=== PATIENT | male | born 1945 | race Caucasian/White ===

== ENCOUNTER 2024-10-26 10:54 | Emergency (ER) | payer MEDICARE, OTHER, SELFPAY ==
--- NOTE | 2024-10-26 11:21 | ED_ITS ---
HPI - General Adult General Chief complaint: Cardiac Arrest/CPR Stated complaint: cardiac arrest History of Present Illness HPI narrative: 79-year-old male present to the emergency department for in full arrest. Patient had called EMS for respiratory distress and when EMS arrived patient was found to be sitting in the chair was unresponsive and was and V-tach. They did shock the patient once on scene and patient remained and PA. Patient was intubated and a left femoral central line was placed. Family arrived and did confirm the patient was DNI DNR. Resuscitative efforts were stopped at approximately 11:20 a.m. Time of was called at 11:30 a.m. Family states the patient has had increased shortness breath over the last 3 weeks, patient does have history of AFib, CHF and prior CVA Related Data Allergies Allergy/AdvReac Type Severity Reaction Status Date / Time cephalexin Allergy Intermediate Confusion Verified 05/23/18 07:37 Review of Systems Review of Systems: ROS unobtainable: Yes unobtainable due to medical condition Exam Narrative: APPEARANCE: Full arrest on arrival HEAD: normocephalic, atraumatic. EYES: Fixed and dilated THROAT: Radhames airway in place, transitioned to ET tube NECK: Supple. No adenopathy, no masses. RESPIRATORY: Agonal breathing CARDIOVASCULAR: PEA ABDOMINAL: Soft, nontender, nondistended, normal bowel sounds MUSCULOSKELETAL: No spontaneous movement NEURO: In response SKIN: Mottled Procedures Central Line Placement Left Femoral: Central Line Time: 11:23 Performed Emergently - Given emergent patient condition, temporal constraints may have precluded informed consent.: Yes Time Out Performed: Yes Patient Placed on Monitor/Pulse Ox: Yes Emergently Placed, Full Sterile: prep not done Ultrasound Used for Placement: Yes Central Line Lumen Inserted: triple Post Procedure: sutured in place, good blood return, all ports aspirated, flushed, capped and sterile dressing applied Patient Tolerated Procedure: well and no complications Complications: none Intubation Intubation #1: Intubation Time: 11:21 Time out performed: Yes sedative: none Tube Size (cm): 7.5 Method of Intubation: orotracheal Number of Attempts: 1 Tube Secured Depth (cm): 23 Tube Secured Location: teeth Tube Placement Confirmation: visualized tube passing through cords, equal breath sounds bilaterally, no breath sounds over epigastrium and confirmation by capnometry Patient Tolerated Procedure: well and no complications Intubation Complications: none Medical Decision Making MDM Narrative Medical decision making narrative: 79-year-old male present to the ED in full arrest. Patient had 5 rounds of epi prior to arriving, patient was intubated had central line placed. During our resuscitation patient did receive 2 shocks for VFib. Prior to starting amiodarone the patient's arrived and stated she wished the patient to be DNI DNR. Critical Care Time Critical Care Time Critical Care Time: Yes Total Critical Care Time: 35 Discharge Plan Discharge Clinical Impression: Cardiac arrest Patient Disposition: Condition: Patient Language: Bulgarian Follow-up/Referrals: UNKNOWN,DOCTOR [Primary Care Provider] -
--- NOTE | 2024-10-26 11:55 | PCCCNOTE ---
Met with the pt's when she arrived at the ED to verify the pt's identity and code status. initially stated the pt was DNR however wanted to continue with chest compressions until her son arrives in 5 minutes. then called the son and found he's 20 minutes away and decided to stop compressions. Notified the treating MD immediately whom requested the to be at bedside if she wanted in which she was agreeable.-divya
--- NOTE | 2024-10-26 11:59 | PC.NURSE ---
see code sheet
--- OUTSIDE RECORDS SUMMARY | 2024-10-26 12:32 | XMS_ITS | Encounter Summary ---
Author Organization [facility] Address [address] [place] [address] Phone Care Team Providers Care Management Instructor Name Role Phone Satish Brothers MD Primary Care Provider [phone] Lindy Carlisle MD Primary Care Provider Ally Starr NP Primary Care Pro vider Encounter Details Date Type Department Care Team (Late st Contact Info) Description 05/17/2021 Treatment [facility] [address] [facility] Medical Office Building [address] [place] [address] Satish Brothers MD [address] [address] Social History Tobacco Use Types Packs/Day Years Used Date Smoking Tobacco: Former Cigarettes Q uit: 1998 Smokeless Tobacco: Never Social Connection and Isolat ion Panel [NHANES] Answer Date Recorded In a typical week, how many times do you talk on the phone with family, friends, or neighbors? More than three times a week 02/05/2021 How often do you get togethe r with friends or relatives? More than three times a week 02/05/2021 How often do you attend chur ch or latter day services? Never 02/05/2021 Do you belong to any clubs o r organizations such as amish groups, unions, fraternal or athletic groups, or school groups? No 02/05/2021 How often do you attend meet ings of the clubs or organizations you belong to? Never 02/05/2021 Are you , , di vorced, , never , or living with a partner? 02/05/2021 Overall Financial Resource Strain (CARDIA) Answe r Date Recorded How hard is it for you to pa y for the very basics like food, housing, medical care, and heating? Not hard at all 02/05/2021 PHQ-2 Answer Date Recorded PHQ-2 Total Score (If total score is 3 or more points, staff should administer the PHQ-9) 0 04/20/2021 Hunger Vital Sign Answer Date Recorded Within the past 12 months, y ou worried that your food would run out before you got the money to buy more. Never true 02/06/20 21 Within the past 12 months, t he food you bought just didn't last and you didn't have money to get more. Never true 02/05/2021 PRAPARE - Transportation Answer Date Re corded In the past 12 months, has l ack of transportation kept you from medical appointments or from getting medications? No 01/25 In the past 12 months, has l ack of transportation kept you from meetings, work, or from getting things needed for daily living? No 02/05/2021 Housing Stability Vital Sign Answer Len e Recorded In the last 12 months, was t here a time when you were not able to pay the mortgage or rent on time? No 02/05/2021 Number of Places Lived in the Last Year Not on f ile 02/05/2021 In the last 12 months, was t here a time when you did not have a steady place to sleep or slept in a alf (including now)? 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
--- OUTSIDE RECORDS SUMMARY | 2024-10-26 12:33 | XMS_ITS | Encounter Summary ---
Author Organization [facility] Address [address] [place] [address] Phone Care Team Providers Care Frit Mixer And Burner Name Role Phone Satish Brothers MD Primary Care Provider [phone] Satish Brothers MD Primary Care Provider [phone] Lindy Carlisle MD Primary Care Provider Ally Starr NP Primary Care Pro vider Encounter Details Date Type Department Care Team (Late st Contact Info) Description 04/25/2015 Orders Only [facility] ProviderIrving MD [address] [place] [id number] Social History Tobacco Use Types Packs/Day Years Used Date Smoking Tobacco: Never Assessed Sex and Gender Information Value Date Recorded Sex Assigned at Not on file 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 Historical Provider CV CARDIAC SERVICES PROCE DURES Final Result * CARDIOLOGY REPORT (04/25/2015) Anatomical Region Laterality Modality Other Narrative 04/25/2015 Ordered by an unspecified provider. Historical Provider CV CARDIAC SERVICES PROCE DURES Final Result documented in this encounter Visit Diagnoses Not on filedocumented in this encounter Care Teams Frit Mixer And Burner Relationship Specialty Start Date End Date Satish Brothers MD PCP - General 11/18/16 01/14/17 Satish Brothers MD PCP - General 01/15/17 10/02/21 Lindy Carlisle MD [address] [place] [address] PCP - General Internal Medicine 10/03/21 02/27/23 Ally Starr NP [address] [place] [address] PCP - General Nurse Practitioner 02/28/23 documented as of this encounter
--- OUTSIDE RECORDS SUMMARY | 2024-10-26 12:33 | XMS_ITS | Encounter Summary ---
Author Organization [facility] Address [address] [place] [address] Phone Care Team Providers Care Rn Digestive Name Role Phone Lindy Carlisle MD Primary Care Provider Ally Starr NP Primary Care Pro vider Encounter Details Date Type Department Care Team (Late st Contact Info) Description 02/03/2023 Treatment [facility] [address] [facility] Medical Office Building [address] [place] [address] Will Walker MD [facility] [address] Social History Tobacco Use Types Packs/Day Years Used Date Smoking Tobacco: Every Day Cigarettes Last attempted to quit: 1998 Cigars Smokeless Tobacco: Never Comments:Occasional cigar Social Connection and Isolat ion Panel [NHANES] Answer Date Recorded In a typical week, how many times do you talk on the phone with family, friends, or neighbors? More than three times a week 02/05/2021 How often do you get togethe r with friends or relatives? More than three times a week 02/05/2021 How often do you attend chur ch or christian services? Never 02/05/2021 Do you belong to any clubs o r organizations such as presybeterian groups, unions, fraternal or athletic groups, or school groups? No 02/05/2021 How often do you attend meet ings of the clubs or organizations you belong to? Never 02/05/2021 Are you , , di vorced, , never , or living with a partner? 02/05/2021 AUDIT-C Answer Date Recorded Q1: How often do you have a drink containing alcohol? 4 or more times a week 12/03/2022 Q2: How many drinks containi ng alcohol do you have on a typical day when you are drinking? 1 or 2 Q3: How often do you have si x or more drinks on one occasion? Less than monthly 12/03/2022 Overall Financial Resource Strain (CARDIA) Answe r Date Recorded How hard is it for you to pa y for the very basics like food, housing, medical care, and heating? Not hard at all 02/05/2021 PHQ-2 Answer Date Recorded PHQ-2 Total Score (If total score is 3 or more points, staff should administer the PHQ-9) 0 06/06/2022 Hunger Vital Sign Answer Date Recorded Within [...] place to sleep or slept in a longterm (including now)? 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
--- OUTSIDE RECORDS SUMMARY | 2024-10-26 12:33 | XMS_ITS | Clinical Summary ---
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 12/02/19 09 Active acetaminophen (TYLENOL) 500 mg tablet Take 1 tablet (500 mg total) by mouth every 6 (six) hours as needed for pain, headaches or fever 03/28/20 17 Active b complex vitamins tabletIndicati ons:Vitamin Deficiency Prevention Take 1 tablet by mouth 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 driver before breakfast 12/02/19 09 Active cholecalcifero l (VITAMIN D-3) 2000 unit capsuleIndicat ions:Vitamin D Deficiency Take 1 capsule (2,000 Units total) by mouth 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 driver before breakfast Active calcium carbonate/lilliam min D3 (CALCIUM 600 + D,3, ORAL) Take 1 tablet by mouth 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 driver before breakfast 600 mg No D in calcium 01/28/20 21 Active psyllium, aspartame, SF (METAMUCIL SF) 3.4 gram packetIndicati ons:constipati on Take 1 packet by mouth 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 driver before breakfast Active finasteride (PROSCAR) 5 mg tablet TAKE 1 TABLET BY MOUTH ONCE DAILY DIRECTED 90 tablet 2 02/16/20 24 Active abaloparatide 80 mcg (3,120 mcg/1.56 mL) pen injector Inject 0.04 mL (80 mcg total) under the skin daily 4.68 mL 3 02/26/20 24 Active pen needle, diabetic (Pen Needle) 32 gauge x 32 needle Use as directed once a day. 100 each 3 02/26/20 24 Active metoprolol XL (TOPROL-XL) 50 mg extended release tablet Take 1 tablet by mouth twice daily 180 tablet 2 06/20/20 24 Active Eliquis 5 mg tablet Take 1 tablet by mouth twice daily 180 tablet 08/09/19 25 Active rosuvastatin (CRESTOR) 40 mg tablet TAKE 1 TABLET BY MOUTH ONCE DAILY AT BEDTIME 90 tablet 09/06/19 25 Active ezetimibe (ZETIA) 10 mg tablet TAKE 1 TABLET BY MOUTH ONCE DAILY AT BEDTIME 90 tablet 09/22/19 25 Active gabapentin (NEURONTIN) 300 mg capsuleIndicat ions:Chronic pain in right foot TAKE 1 CAPSULE BY MOUTH THREE TIMES DAILY 270 capsule 10/15/19 25 Active gabapentin (NEURONTIN) 300 mg capsuleIndicat ions:Chronic pain in right foot Take 1 capsule (300 mg total) by mouth 3 (three) times a day 270 capsule 04/21/20 24 025 Discontinued Active Problems Problem Noted Date Diagnosed Date Nonrheumatic aortic valve stenosis 07/08/2024 Assessment & Plan (07/08/2024 2:06 PM PLASTERING SUPERVISOR): Moderate aortic stenosis appreciated on echocardiogram from 01/15/2024 with low-normal ejection fraction of 51%. Patient is asymptomatic and euvolemic upon examination. Will repeat echocardiogram in 6 months for routine monitoring. His blood pressure is elevated and low normal ejection fraction we discussed adding losartan to his medication regimen. He was a bit hesitant to do so and would like to await echo results in 6 months and monitor blood pressure at home. Thrombocytopenia 12/04/2022 Overview (12/04/2022): Lab Results Component Value Date WBC 6.1 12/03/2022 HGB 15.4 12/03/2022 HCT 45.0 12/03/2022 MCV 103.7 (H) 12/03/2022 LABPLAT 139 (L) 12/03/2022 Most recent plt 139, previously ~300K. Most recent MCV 103.7, has been elevated previous readings as well. B12 and folate wnl. Possible concern for myeloproliferative disorder but will workup further. May need heme f/u pending workup. Assessment & Plan (12/04/2022 1:28 PM CDT): - Repeat CBC in four weeks - HIV - Copper SSS (sick sinus syndrome) 12/03/2022 Assessment & Plan (07/08/2024 2:05 PM PLASTERING SUPERVISOR): Status post PPM. Continue close follow up with EP. Assessment & Plan (01/12/2024 1:26 PM CDT): Status post PPM. Continue close follow up with EP. Medicare annual wellness visit, subsequent 06/06 Assessment & Plan (06/06/2022 2:46 PM PLASTERING SUPERVISOR): - Depression screen: PHQ Screening PHQ-2 Total Score (If total score is 3 or more points, staff should administer the PHQ-9): 0 - A1c: not needed - Lipids: screen today - AAA screening: none on prior US - Colon cancer: due for cscope 2026 - Prostate cancer: Benefits and risks discussed. Pt declines screening - Lung cancer: not needed - HIV: not needed - HCV: screen today - Other STI: not needed - Influenza: utd - Td/Tdap: give today - PPSV23: utd - PCV13: utd - Shingrix: he will consider - COVID: utd bivalent Routine health maintenance objectives discussed including need for healthy diet and physical activity and orders placed for any outstanding screening studies as noted. Physical exam performed as above.Routine annual labs, if needed, have been ordered and will be reviewed with patient when results available. Actinic keratoses 06/06/2022 Overview (12/04/2022): Scalp w/ actinic keratosis and seborrheic keratosis that has been bothersome recently. Plans to see Derm in ~ 2 weeks. Uses OTC cream which helps w/ discomfort. Assessment & Plan (12/04/2022 1:20 PM CDT): - Derm f/u - Discussed protective measures for skin/scalp including wearing hat while outdoors Assessment & Plan (06/06/2022 9:44 PM PLASTERING SUPERVISOR): Urged him to f/u with his windows and doors installer. Discussed photoprotection. Osteoporosis with pathologic al fracture of multiple sites with routine healing 04/20/2021 Overview (04/20/2021): Has 2019 hip fracture from fragility w/ relatively normal BMD, a fall and T12 compression 2020 and a second DXA. Despite the relatively preserved numbers he has osteoporosis in the classic sense Femoral neck T-score= -2.0 03/17 Assessment & Plan (06/06/2022 9:40 PM PLASTERING SUPERVISOR): Hx of hip fracture in 2018 and T12 compression fracture 2020. DEXA 01/2021 with Region BMD T-score Z-score AP Spine (L1-L4) 0.881 -1.9 -0.9 Femoral Neck (Left) 0.653 -2.0 -0.7 Total Hip (Left) 0.981 -0.3 0.4 - S/p REclast 05/2021, will repeat dose this year. - cont calcium, vit D, rec regular exercise. He needs to reduce alcohol intake. Assessment & Plan (04/20/2021 3:33 PM CDT): On Ca and D and remains at high risk for subsequent fracture so we will proceed w/ ZOL Myelopathy of thoracic region 03/13/2021 Impairment of balance 03/13/2021 Compression fracture of T12 vertebra 01/31/2021 Overview (12/04/2022): Previous compression fracture T12 managed non-operatively. Gets PT twice a week. Plans to see bone health clinic December 2022. Last reclast infusion 05/2021, order placed May 2022. Assessment & Plan (12/04/2022 1:24 PM CDT): - Follow up w/ bone health clinic for density screening and reclast infusion administration Assessment & Plan (06/06/2022 9:45 PM PLASTERING SUPERVISOR): Managed nonoperatively. With retropulsion but no myelomalacia. - see tx of osteoporosis Age-related nuclear cataract of both eyes 2017 Presbyopia of both eyes 06/08/2018 Blepharitis of upper eyelids of both eyes 2017 Paroxysmal atrial fibrillation 12/31/2017 Assessment & Plan (07/08/2024 2:05 PM PLASTERING SUPERVISOR): Well controlled and asymptomatic. No bleeding issues with Eliquis. Continue Eliquis and metoprolol XL. Continue close follow up with EP. Repeat CBC. Assessment & Plan (01/12/2024 1:27 PM CDT): Well controlled and asymptomatic. Continue Eliquis and metoprolol XL. Continue close follow up with EP. Assessment & Plan (06/06/2022 9:38 PM PLASTERING SUPERVISOR): Rate controlled. - Cont Eliquis 5mg bid, metoprolol XL 50mg every day - cont f/u with Dr. 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 Cont tx of afib, ASA, rosuvastatin as secondary prevention. Assessment & Plan (03/13/2020 10:43 AM CDT): This and the aftereffects are biggest health trouble Benign prostatic hyperplasia with urinary obstru ction 09/11/2013 Presence of cardiac pacemaker 02/09/2013 Syncope 02/01/2011 Chronic coronary artery disease 12/10/2010 Assessment & Plan (07/08/2024 2:04 PM PLASTERING SUPERVISOR): No chest pain or anginal equivalent. Continue ASA, zetia, Crestor and metoprolol XL. Assessment & Plan (01/12/2024 1:28 PM CDT): No chest pain or anginal equivalent. Continue ASA, zetia and metoprolol XL. Assessment & Plan (06/06/2022 9:43 PM PLASTERING SUPERVISOR): No angina. Moderate coronary disease on angiography approximately 10 years ago. Last ischemic evaluation was about 2 years ago demonstrating no ischemia. F/b Dr. Florez. - Cont ASA 81mg every day, rosuvastatin 40mg every day, metoprolol XL 50mg every day Assessment & Plan (03/13/2020 10:44 AM CDT): He reports no angina Hyperlipidemia 12/10/2010 Assessment & Plan (07/08/2024 2:04 PM PLASTERING SUPERVISOR): Stable on labs in 06/2023. Continue zetia and crestor. Repeat fasting lipid panel. Assessment & Plan (01/12/2024 1:28 PM CDT): Stable on labs in 06/2023. Continue zetia and crestor. Assessment & Plan (06/06/2022 9:40 PM PLASTERING SUPERVISOR): Lab Results Component Value Date CHOL 203 (H) 04/09/2013 Lab Results Component Value Date HDL 47 06/06/2022 HDL 61 03/13/2020 HDL 42 12/03/2018 Lab Results Component Value Date LDLCALC 43 06/06/2022 LDLCALC 28 03/13/2020 LDLCALC 46 12/03/2018 LDL 112 (H) 04/09/2013 Lab Results Component Value Date TRIG 94 06/06/2022 TRIG 155 (H) 03/13/2020 TRIG 87 12/03/2018 - cont Zetia 10mg every day, rosuvastatin 40mg every day Essential hypertension 12/10/2010 Overview (12/04/2022): BP Readings from Last 3 Encounters: 12/04/22 151/73 12/03/22 141/65 08/08/22 149/78 Reports lower home readings. Currently on metop 50 mg but not taking other anti- HTN medications. Assessment & Plan (07/08/2024 2:05 PM PLASTERING SUPERVISOR): Elevated today but well controlled at home per . Admits they have not been checking as of lately. Continue metoprolol XL. Keep blood pressure diary and returned to review 1-2 weeks. Assessment & Plan (01/12/2024 1:28 PM CDT): Elevated today but well controlled at home. Continue metoprolol XL. Assessment & Plan (12/04/2022 1:18 PM CDT): - BP log to bring at next visit - Continue metop 50 Assessment & Plan (06/06/2022 9:42 PM PLASTERING SUPERVISOR): BP above goal <130/80. - Current medication regimen: cont metoprolol XL 50mg every day - rec home BP monitoring - Counseled regarding lifestyle measures to control HTN including low salt diet rich in fruits and vegetables, limiting alcohol use, regular exercise, and weight loss of 5-10% if pt is obese. Sick sinus syndrome (CMS/HCC) 12/10/2010 Overview (12/04/2022): Recently got pacemaker changed. Denies any chest pain, sob, pain at pacemaker site, palpations. Has cardiology f/u 03/2023 Assessment & Plan (12/04/2022 1:21 PM CDT): - Continue outpatient cardiology f/u Assessment & Plan (06/06/2022 9:37 PM PLASTERING SUPERVISOR): S/p PPM, f/b Dr. Anaya. 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 Appears to be a new finding. Stress echo in 2019 with no valvular disease appreciated. Echocardiogram when he can. Abnormal gait 03/13/2021 06/06/2022 Hemiparesis 03/13/2021 06/06/2022 Acute pain due to trauma 02/01/202104/2022 Closed fracture of acetabulum (CMS/HCC) 09/28/2018 06/06/2022 Debility 09/23/2018 06/06/2022 Overview (09/23/2018): From the fall and prior severe stroke He is home bound and wheelchair confined Assessment & Plan (09/23/2018 10:47 AM PLASTERING SUPERVISOR): We need home health and home PT and OT Falling, in, on, steps, sequela 09/23/2018 06/06/2022 Overview (09/23/2018): There is significant potentially unrecognozed injury to the right hip/ pelvis/ sacrum Assessment & Plan (09/23/2018 10:48 AM PLASTERING SUPERVISOR): We will work this up with bone scan and extensive plain films Pain in joint of right hip 09/23/2018 1 08/06/2021 Assessment & Plan (09/23/2018 10:49 AM PLASTERING SUPERVISOR): We will work this up with bone scan and extensive plain films Pain of foot 12/11/2016 06/06/2022 Routine medical exam 12/01/2016 022 Anticoagulated on warfarin 01/06/2014 1 08/06/2021 Arteriosclerotic heart disease (ASHD) 12/10/2010 06/06/2022 Encounters Date Type Department Care Team Description 10/26/2024 Telephone [facility] [address] [address] Ally Starr NP 10/26/2024 Telephone [facility] [address] [place] [address] 8th [place] [address] [place] [phone] Piyush Anaya MD PhD 10/20/2024 Telephone [facility] [address] [facility] [address] [facility] 8th [place] [address] [place] [address] Godwin Florez MD Follow-up 10/19/2024 9:30 AM CDT Office Visit [facility] [address] [place] [address] Ally Starr NP SIERRA (dyspnea on exertion) (Primary Dx); Other fatigue 09/20/2024 Orders Only [facility]iology [address] [facility] [address] [place] [address] Piyush Anaya MD PhD from Last 3 Months Immunizations Immunization Administration Dates Next Due Influenza, Quadrivalent, Hig h Dose, Preservative Free, Intrr 04/05/2020 Influenza, Trivalent, High D ose, Split, Preservative Free, Intramuscular 04/23/2019,04/05/2018,03/28/2017,04/15,04/17/2015,04/26/2014 Moderna SARS-CoV-2 Monovalen t Vaccination (12+ YRS) 01/17/2022,05/19/2021,04/02/2021,10/07 Pneumococcal Conjugate PCV 13 11/21/2014 Pneumococcal Polysaccharide PPV23 09/12/2009 Tdap 06/06/2022 Surgical History Surgery Date Site/Laterality Comments SC TEAEC W/PATCH GRF CAROTID VERTB SUBCLAV NECK INC 07/28/2002 - 07/27/2003 Carotid Thromboendarterectomy - (Added by TW Conv) CORONARY ANGIOPLASTY WITH STENT PLACEMENT 06/27/1999 - 07/27/1999 Cath Stent 2 Type Drug-Eluting - (Added by TW Conv) CAROTID ENARTERECTOMYY 07/28/2002 - 07/27/2003 Endarterectomy Carotid Artery - The RIGHT 2002 (Added by TW Conv) INSERT / REPLACE / REMOVE PACEMAKER 09/25/2008 - 10/25/2008 Dr. Anaya ADENOIDECTOMY as a child COLONOSCOPY DE QUERVAIN'S RELEASE Right repain TIBIA FRACTURE SURGERY in High school SHOULDER SURGERY FRACTURE SURGERY High school leg Medical History Medical History Date Comments Atherosclerotic heart diseas e of [place] coronary artery without angina pectoris ASHD (arterios clerotic heart disease) - (Added by TW Conv) Stroke (HCC) 1999, R sided we akness, aphasia Hypertension Pacemaker Atrial fibrillation (HCC) Dental disease cavities Colon polyp Diverticulosis Chronic diarrhea Cancer (HCC) Skin Benign prostatic hyperplasia Years Osteoporosis 2020 Heart disease Years Family History Medical History Relation Name Comments Coronary artery disease Father Calvin Garza ly history of coronary artery disease - (Added by TW Conv) Heart attack Father Calvin Family history of myocardial infarction - (Added by TW Conv) Heart disease Father Calvin FH: premature coronary heart disease - (Added by TW Conv) Diabetes Mother Saleem Anesthesia problems Neg Hx Broken bones Neg Hx Hip fracture Neg Hx Kyphosis Neg Hx Osteoporosis Neg Hx Scoliosis Neg Hx Relation Name Status Comments Father Calvin Mother Saleem Social History Tobacco Use Types Packs/Day Years Used Date Smoking Tobacco: Former Cigarettes Q uit: 1998 Smokeless Tobacco: Never Comments:Has a cigar per day Passive Exposure Comments:Currently cigars, cigarettes quit in 1998 Social Connection and Isolat ion Panel [NHANES] Answer Date Recorded In a typical week, how many times do you talk on the phone with family, friends, or neighbors? More than three times a week 02/05/2021 How often do you get togethe r with friends or relatives? More than three times a week 02/05/2021 How often do you attend chur or jehovah's witness services? Never 02/05/2021 Do you belong to any clubs o r organizations such as sikh groups, unions, fraternal or athletic groups, or school groups? No 02/05/2021 How often do you attend meet ings of the clubs or organizations you belong to? Never 02/05/2021 Are you , , di vorced, , never , or living with a partner? 02/05/2021 AUDIT-C Answer Date Recorded Q1: How often do you have a drink containing alcohol? 4 or more times a week 11/24/2023 Q2: How many drinks containi ng alcohol do you have on a typical day when you are drinking? 1 or 2 Q3: How often do you have si x or more drinks on one occasion? Never 11/24/2023 Overall Financial Resource Strain (CARDIA) Answe r Date Recorded How hard is it for you to pa y for the very basics like food, housing, medical care, and heating? Not hard at all 02/05/2021 PHQ-2 Answer Date Recorded PHQ-2 Total Score (If total score is 3 or more points, staff should administer the PHQ-9) 0 04/20/2024 Hunger Vital Sign Answer Date Recorded Within the past 12 months, y ou worried that your food would run out before you got the money to buy more. Never true 04/15/20 23 Ran Out of Food in the Last Year Not on file 04/15/2023 PRAPARE - Transportation Answer Date Re corded [...] place to sleep or slept in a retirement (including now)? No 02/05/2021 Personal Safety Answer Date Recorded Have you ever been in or are you currently in a harmful physical or emotional relationship or is someone making you feel afraid or unsafe? Denies 04/15/2023 Sex and Gender Information Value Date Recorded Sex Assigned at Not on file Legal Sex Male 7:47 PM PLASTERING SUPERVISOR Gender Identity Not on file Sexual Orientation Not on file Obstetrics History Last Filed Vital Signs Vital Sign Reading Time Taken Comments Blood Pressure 127/81 10/19/2024 9:30 AM CDT Pulse 79 10/19/2024 9:30 AM CDT Temperature 36.4 C (97.6 F) 04/21/2024 9:34 AM CDT Respiratory Rate 19 04/08/2023 8:17 AM CDT Oxygen Saturation 95% 10/19/2024 9:30 AM CDT Inhaled Oxygen Concentration - - Weight 90.3 kg (199 lb) 10/19/2024 9:30 AM CDT Height 174 cm (5' 8.5 ) 10/19/2024 9:30 AM CDT Body Mass Index 29.82 10/19/2024 9:30 AM CDT Plan of Treatment Health Maintenance Due Date Last Done Comments Albumin Creatinine Ratio, Urine 1945 Hepatitis B Screening 1965 Zoster Vaccine (1 of 2) 1997 Covid-19 Vaccine (5 2023-2 5 season) 2024 01/17/2022, 05/19/2021, 04/02/2021, Additional history exists Hemoglobin A1C 07/17/2024 01/16/2024, 01/01/2023 Influenza Vaccine (Season Ended) 2025 04/05/2020, 04/23/2019, 04/05/2018, Additional history exists Depression Screening 04/21/2025 04/21/2024, 06/06/2022, 04/20/2021, Additional history exists Fall Risk Assessment 04/21/2025 04/21/2024, 04/08/2023, 06/06/2022, Additional history exists Well Visit 65+ 04/21/2025 04/21/2024, 05/28, 04/20/2021, Additional history exists Lipid Panel 07/14/2025 07/14/2024, 06/27, 06/06/2022, Additional history exists eGFR 07/14/2025 07/14/2024, 03/28, 01/24/2023, Additional history exists Dilated Eye Exam 08/28/2025 08/28/2024, , 06/16/2020, Additional history exists Foot Exam 08/31/2025 08/31/2024 DTaP/Tdap/Td Vaccine (2 - Td or Tdap) 06/06/2032 06/06/2022 Pneumococcal vaccine 65+ Discontinued 11/21/2014, 08/28 Hepatitis C Screening Completed 06/06/2022 Colon Cancer Screening-CT Colonography Discontinued 04/08/2023, 01/15/2017 Colon Cancer Screening-Colonoscopy Discontinued 04/08/2023, 01/15/2017 Colon Cancer Screening-DNA Stool Discontinued 04/08/20, 01/15/2017 Colon Cancer Screening-FIT Discontinued 04/08/2023, Colon Cancer Screening-FOBT Discontinued 04/08/2023, 0 01/15/2017 Colon Cancer Screening-Sigmoidoscopy Discontinued 04/08/2023, 01/15/2017 Colorectal Cancer Screening Discontinued Abdominal Aortic Aneurysm (A AA) Screen Completed 12/03/2023, 01/21/2023, 01/09/2015 Medical Devices Implanted Type Area Throat Cutter Device Identifier Shelf Expiration Date Model / Serial / Lot Medtronic Ra Lead (5076-45) Lead Chest Medtronic Cardiac Rhythm Mgmt 5076-45 / / Medtronic Rv Lead (5076-52) Lead Chest Medtronic Cardiac Rhythm Mgmt 5076-52 / / Medtronic Pacemaker (Addrl1) Pacemaker Chest Medtronic Cardiac Rhythm Mgmt [id number] / / Medtronic Inc [place] S Mri Surescan 50.8x46.6mm 2 Chamber 7.4mm Pacemaker 22.5gm [id number] - [id number] - [id number] Implanted:Qty : 1 on 12/03/2022 by Piyush Anaya MD PhD at [facility] Pacemaker Left: Chest Wall Medtronic Inc 02/22/2024 [id number] / [id number] / Procedures Procedure Name Priority Date/Time Associated Diagnosis Comments DEVICE CHECK - REMOTE Routine 09/20/2024 12:58 AM PLASTERING SUPERVISOR BASIC METABOLIC PANEL Routine 07/14/2024 1:07 PM PLASTERING SUPERVISOR Chronic coronary artery disease LIPID PANEL Routine 07/14/2024 1:07 PM PLASTERING SUPERVISOR HEMOGLOBIN A1C Routine 01/16/2024 3:10 PM CDT Age-related osteoporosis without current pathological fracture Other specified diabetes mellitus with other specified complication, unspecified whether long-term insulin use (HCC) COLONOSCOPY 04/08/2023 6:[address] ABDOMEN PELVIS WO CONTRAST Schedule FLAKITA, Read FLAKITA (Appt Today, Awaiting Results) 01/21/2023 2:45 PM CDT Passage of bloody stools Diarrhea, unspecified type HEPATITIS C ANTIBODY Routine 06/06/2022 2:55 PM PLASTERING SUPERVISOR Need for hepatitis C screening test from Last 3 Months or Most Recently Relevant to Health Maintenance Results * DEVICE CHECK - REMOTE (09/20/2024 12:58 AM PLASTERING SUPERVISOR) Anatomical Region Laterality Modality Other 09/20/2024 12:5 8 AM PLASTERING SUPERVISOR Narrative 10/01/2024 8:58 AM PLASTERING SUPERVISOR Interpretation Summary: Battery and Leads (BL) Normal parameters noted on battery and lead(s) --- 12.2 yrs remaining longevity. Sensing, threshold, and RV impedance trends stable and appropriate. No short V-V intervals. Lead impedance out of range --- Atrial bipolar & unipolar impedance 1463 ohms & 1292 ohms. Trends are stable. Presenting Rhythm (SC) Atrial Pacing-Ventricular Sensing (AP-VS) --- AP/VS 60 bpm. Arrhythmic events (AE) Nonsustained VT event(s) identified --- Since 06/28/24: One NSVT episode, 2 sec. Anticoagulation (AC) Patient prescribed Apixaban (Eliquis) Patient on anticoagulant therapy Transmission Information (TI) Device Summary Report Follow Up (FU) Patient's primary treating physician will be apprised of findings Procedure Note Piyush Anaya MD PhD - 10/01/2024 Interpretation Summary: Battery and Leads (BL) Normal parameters noted on battery and lead(s) --- 12.2 yrs remaininglongevity. Sensing, threshold, and RV impedance trends stable andappropriate. No short V-V intervals. Lead impedance out of range --- Atrial bipolar & unipolar impedance 1463ohms & 1292 ohms. Trends are stable. Presenting Rhythm (SC) Atrial Pacing-Ventricular Sensing (AP-VS) --- AP/VS 60 bpm. Arrhythmic events (AE) Nonsustained VT event(s) identified --- Since 06/28/24: One NSVT episode,2 sec. Anticoagulation (AC) Patient prescribed Apixaban (Eliquis) Patient on anticoagulant therapy Transmission Information (TI) Device Summary Report Follow Up (FU) Patient's primary treating physician will be apprised of findings Piyush Anaya MD PhD [facility] PROCEDURES Final Result * (ABNORMAL) Lipid panel (07/14/2024 1:07 PM PLASTERING SUPERVISOR) Cholesterol 92 <200 mg/dL [facility] HDL 31(L) > OR = 40 mg/dL [facility] Triglycerides 93 <150 mg/dL [facility] LDL 43 mg/dL (calc) [facility] Comment: Reference range: <100 Desirable range <100 mg/dL for primary prevention; <70 mg/dL for patients with CHD or diabetic patients with > or = 2 CHD risk factors. LDL-C is now calculated using the Cecily calculation, which is a validated novel method providing better accuracy than the Friedewald equation in the estimation of LDL-C. Shakeel GARLAND et al. LIZ. 2013;310(19): 2489-3825 (http://education.Mutracx/faq/XKK197) Chol/HDL ratio 3.0 <5.0 (calc) [facility] Non-HDL, (LDL+VLDL) 61 <130 mg/dL (calc) [facility] Comment: For patients with diabetes plus 1 major ASCVD risk factor, treating to a non-HDL-C goal of <100 mg/dL (LDL-C of <70 mg/dL) is considered a therapeutic option. 07/14/2024 1:07 PM PLASTERING SUPERVISOR 07/14/2024 1:08 PM PLASTERING SUPERVISOR Narrative [facility] - 07/15/2024 9:58 AM PLASTERING SUPERVISOR FASTING:NO FASTING: NO Jayjay Gardner NP LAB BLOOD ORDERABLES Fin al Result [facility] [address] [address] [place] [address] * Basic metabolic panel (07/14/2024 1:07 PM PLASTERING SUPERVISOR) Pathologist [facility] Glucose 90 65 - 139 mg/dL [facility] Comment: Non-fasting reference interval BUN 16 7 - 25 mg/dL [facility] Creatinine 1.10 0.70 - 1.28 mg/dL [facility] eGFR 69 > OR = 60 mL/min/1.7 3m2 [facility] BUN/creat ratio SEE NOTE: 6 - 22 (calc) [facility] Comment: Not Reported: BUN and Creatinine are within reference range. Sodium 139 135 - 146 mmol/L [facility] Potassium, pl 3.8 3.5 - 5.3 mmol/L [facility] Chloride 102 98 - 110 mmol/L [facility] CO2 27 20 - 32 mmol/L [facility] Calcium 9.5 8.6 - 10.3 mg/dL [facility] Blood 07/14/2024 1:07 PM PLASTERING SUPERVISOR 07/14/2024 1:08 PM PLASTERING SUPERVISOR Narrative [facility] - 07/15/2024 9:58 AM PLASTERING SUPERVISOR FASTING:NO FASTING: NO Jayjay Gardner NP LAB BLOOD ORDERABLES Fin al Result [facility] [address] [place] [address] * Hemoglobin A1c (01/16/2024 3:10 PM CDT) Hgb A1C 5.6 <5.7 % of total Hgb [facility] Comment: For the purpose of screening for the presence of diabetes: <5.7% Consistent with the absence of diabetes 5.7-6.4% Consistent with increased risk for diabetes (prediabetes) > or =6.5% Consistent with diabetes This assay result is consistent with a decreased risk of diabetes. Currently, no consensus exists regarding use of hemoglobin A1c for diagnosis of diabetes in children. According to [place] Diabetes Association (ADA) guidelines, hemoglobin A1c <7.0% represents optimal control in non- diabetic patients. Different metrics may apply to specific patient populations. Standards of Medical Care in Diabetes(ADA). This test was performed on the Flaco chris c503 platform. Effective 10/13/23, a change in test platforms from the Lopez Chha to the Flaco chris c503 may have shifted HbA1c results compared to historical results. Based on laboratory validation testing conducted at [facility], the Flaco platform relative to the Lopez platform had an average increase in HbA1c value of < or = 0.3%. This difference is within accepted variability established by the National Glycohemoglobin Standardization Program. Note that not all individuals will have had a shift in their results and direct comparisons between historical and current results for testing conducted on different platforms is not recommended. Blood 01/16/2024 3:10 PM CDT 01/16/2024 3:11 PM CDT Narrative [facility] - 01/17/2024 7:00 AM CDT FASTING:NO FASTING: NO us Kecia Guzman SUPERVISOR CORE DRILLING LAB BLOOD ORDERABLES Final Re sult SHANNAN [facility] [address] [place] [address] * COLONOSCOPY (04/08/2023 6:59 AM CDT) Anatomical Region Laterality Modality Other Narrative Procedure Note Raul Spear MD - 04/08/2023 6:59 AM CDT ENDOSCOPY LAB Patient Name: Napoleon Woodruff Procedure Date: 04/08/2023 6:59 AM Admit Type: Outpatient Room: [facility] 3 Date of : 1945 Instrument Name: [id number] Gender: Male Note Status: Finalized Procedure: Colonoscopy Indications: Chronic diarrhea, Hematochezia Providers: Raul Spear M.D. Referring MD: Lindy Carlisle M.D. Medicines: Propofol per Anesthesia Complications: No immediate complications. Estimated Blood Loss: Estimated blood loss: none. Procedure: Pre-Anesthesia Assessment: - Prior to the procedure, a History and Physicalwas performed, and patient medications and allergieswere reviewed. The patient is competent. The risks and benefits of the procedure and the sedation optionsand risks were discussed with the patient. Allquestions were answered and informed consent was obtained. Patient identification and proposed procedure were verified by the nurse in the procedure room. Mental Status Examination: alert and oriented. Airway Examination: normal oropharyngeal airway and neck mobility. Respiratory Examination: clear to auscultation. CV Examination: normal. Prophylactic Antibiotics: The patient does not requireprophylactic antibiotics. Prior Anticoagulants: The patient has taken no anticoagulant or antiplatelet agents. ASA Grade Assessment: I - A normal, healthy patient.After reviewing the risks and benefits, the patient was deemed in satisfactory condition to undergo the procedure. The anesthesia plan was to use moderate sedation / analgesia (conscious sedation).Immediately prior to administration of medications, the patient was re-assessed for adequacy to receive sedatives.The heart rate, respiratory rate, oxygen saturations, blood pressure, adequacy of pulmonary ventilation,and response to care were monitored throughout the procedure. The physical status of the patient was re-assessed after the procedure. - The risks and benefits of the procedure and the sedation options and risks were discussed with the patient. All questions were answered and informed consent was obtained. The benefits, risks and alternatives of theprocedure and sedation were discussed and informed consentwas obtained. All questions were answered. Please referto the signed informed consent document in the medical record. The scope was passed under direct vision.The Colonoscope was introduced through the anus and advanced to the the cecum, identified byappendiceal orifice and ileocecal valve. The colonoscopy was performed without difficulty. The patient tolerated the procedure well. The quality of the bowel preparation was good. The ileocecal valve,appendiceal orifice, and rectum were photographed. The bowel preparation used was polyethylene glycol (PEG) via split dose instruction. Findings: The colon (entire examined portion) appeared normal. Biopsies weretaken with a cold forceps for histology. The terminal ileum appeared normal - 1 cm. Internal hemorrhoids were found during retroflexion. The hemorrhoids were mild and Grade I (internal hemorrhoids that do not prolapse). Impression: - The entire examined colon is normal. Biopsied. - The examined portion of the ileum was normal. - Internal hemorrhoids. Recommendation: - Repeat colonoscopy is not recommended forscreening purposes. - Return to my office to see my PA to discusssymptoms and futher work up and treatment. Electronically signed by Raul Spear MD Raul Spear M.D. 04/08/2023 7:50:16 AM Number of Addenda: 0 Note Initiated On: 04/08/2023 6:59 AM Scope Withdrawal Time: 0 hours 6 minutes 44 seconds Scope In: 7:24:19 AM Scope Out: 7:36:00 AM us Raul Spear MD ENDOSCOPY PROCEDURES Fin al Result * CT Abdomen Pelvis WO Contrast (01/21/2023 2:45 PM CDT) Anatomical Region Laterality Modality Body N/A Computed Tomogra phy 01/21/2023 2:55 PM CDT Impressions 01/21/2023 4:26 PM CDT 1. Findings of diverticulosis without evidence of acute diverticulitis with mild thickening of the rectum which may represent proctitis. 2. Age indeterminant T12 compression fracture with associated retropulsion causing severe spinal canal stenosis at this level. Dictated by: Leticia Sarmiento M.D. The radiology attending physician has personally reviewed this study, and had reviewed and/or edited this written report and agrees with it. Electronically signed by: Jordyn Kenyon M.D. Narrative 01/21/2023 4:26 PM CDT EXAMINATION: CT ABDOMEN PELVIS WO CONTRAST HISTORY: Bloody stools diarrhea. TECHNIQUE: Transaxial computed tomographic images of the abdomen and pelvis were obtained without the use of intravenous contrast according to standard protocol. COMPARISON: No relevant comparison available. FINDINGS: Mild bibasilar atelectasis. No pleural effusion or pneumothorax. Partially imaged pacemaker leads within the right atrium and right ventricle. No pericardial effusion. Multivessel coronary artery disease. Hypoattenuating lesion in hepatic segment 4 may represent a cyst. No biliary duct dilation. Cholelithiasis without evidence of acute cholecystitis. The spleen, pancreas, and bilateral adrenal glands are normal. No hydronephrosis or renal calculi. Bowel loops are normal in caliber without evidence of obstruction. There is liquid stool within the rectum which appears mildly thick walled in keeping with diarrhea. Colonic diverticulosis without evidence of acute diverticulitis. The appendix is normal. No free air or free intraperitoneal fluid. No abdominal or pelvic lymphadenopathy. Extensive atherosclerotic calcifications involving the abdominal aorta which remains normal in caliber. The bladder is normal. The prostate gland is present. No suspicious osseous lesions. There is an age indeterminant T12 compression fracture with associated retropulsion causing severe spinal canal stenosis at this level. Procedure Note Jordyn Kenyon MD - 01/21/2023 EXAMINATION: CT ABDOMEN PELVIS WO CONTRAST HISTORY: Bloody stools diarrhea. TECHNIQUE: Transaxial computed tomographic images of the abdomen and pelvis were obtained without the use of intravenous contrast according to standard protocol. COMPARISON: No relevant comparison available. FINDINGS: Mild bibasilar atelectasis. No pleural effusion or pneumothorax. Partially imaged pacemaker leads within the right atrium and right ventricle. No pericardial effusion. Multivessel coronary artery disease. Hypoattenuating lesion in hepatic segment 4 may represent a cyst. No biliary duct dilation. Cholelithiasis without evidence of acute cholecystitis. The spleen, pancreas, and bilateral adrenal glands are normal. No hydronephrosis or renal calculi. Bowel loops are normal in caliber without evidence of obstruction. There is liquid stool within the rectum which appears mildly thick walled in keeping with diarrhea. Colonic diverticulosis without evidence of acute diverticulitis. The appendix is normal. No free air or free intraperitoneal fluid. No abdominal or pelvic lymphadenopathy. Extensive atherosclerotic calcifications involving the abdominal aorta which remains normal in caliber. The bladder is normal. The prostate gland is present. No suspicious osseous lesions. There is an age indeterminant T12 compression fracture with associated retropulsion causing severe spinal canal stenosis at this level. IMPRESSION: 1. Findings of diverticulosis without evidence of acute diverticulitis with mild thickening of the rectum which may represent proctitis. 2. Age indeterminant T12 compression fracture with associated retropulsion causing severe spinal canal stenosis at this level. Dictated by: Leticia Sarmiento M.D. The radiology attending physician has personally reviewed this study, and had reviewed and/or edited this written report and agrees with it. Electronically signed by: Jordyn Kenyon M.D. Ally Starr SUPERVISOR CORE DRILLING IMG CT PROCEDURES Final Result * Hepatitis C antibody (06/06/2022 2:55 PM PLASTERING SUPERVISOR) A-HCV II 0.06 Negative <0.90 [facility] Comment: <=0.9 negative 0.9-<1.0 borderline >= 1 positive Blood 06/06/2022 2:55 PM PLASTERING SUPERVISOR 06/06/2022 3:23 PM PLASTERING SUPERVISOR Lindy Carlisle MD LAB MICROBIOLOGY - GEN ERAL ORDERABLES Final Result Performing Organization Address City/State/[facility] Co de Phone Number [address] [address] from Last 3 Months or Most Recently Relevant to Health Maintenance Insurance AETNA MEDICARE MEDICARE MEDICARE [employer] OPEN ACCESS [facility] MEDICARE [facility] MEDICARE Address: [address] [place] [address] UHC MEDICARE ADVANTAGE [facility] MEDICARE [facility] MEDICARE Advance Directives For more information, please contact: [phone] * Full Code (Latest Code Status on File) Date Activated Date Inactivated Comments 04/08/2023 6:44 AM 04/08/2023 1:20 PM * Full Code Date Activated Date Inactivated Comments 02/01/2021 2:59 AM 02/11/2021 6:18 PM Care Teams Guest Advisor Relationship Specialty Start Date End Date Ally Starr NP PCP - General Nurse Practitioner 02/28/23
--- OUTSIDE RECORDS SUMMARY | 2024-10-26 12:33 | XMS_ITS | Clinical Summary ---
Author Organization [facility] Address [address] [place] [address] Care Team Providers Care Ball Point Splitter Name Role Phone Ally Starr NP Primary Care Provider [phone] Allergies Active Allergy Reactions Criticality Noted Date Comments Cephalexin Other (see comment) 09/05/2018 confusion Medications ELIQUIS 5 MG tabletIndication s:Atrial Fibrillation Take 1 tablet by mouth 2 (two) times daily. Indications: Atrial Fibrillation Active ezetimibe (ZETIA) 10 MG tabletIndication s:elevated cholesterol Take 1 tablet (10 mg total) by mouth nightly at bedtime. Indications: elevated cholesterol 4 Active finasteride (PROSCAR) 5 MG tabletIndication s:bph Take 1 tablet by mouth nightly at bedtime. Indications: bph Active gabapentin (NEURONTIN) 300 MG capsuleIndicatio ns:neuropathy Take 1 capsule (300 mg total) by mouth 3 (three) times daily. Indications: neuropathy 4 Active metoprolol succinate ER (TOPROL-XL) 50 MG 24 hr tabletIndication s:altered blood pressure/a-fib Take 1 tablet by mouth 2 (two) times daily. Indications: altered blood pressure/a-fib 3 Active rosuvastatin (CRESTOR) 40 MG tabletIndication s:elevated cholesterol Take 1 tablet (40 mg total) by mouth nightly at bedtime. Indications: elevated cholesterol 4 Active aspirin EC (ECOTRIN) 81 MG tabletIndication s:heart health Take 1 tablet by mouth daily. Indications: heart health Active Vitamin D3 (CHOLECALCIFEROL ) 50 mcg tabletIndication s:osteoporosis Take 1 tablet by mouth daily. Indications: osteoporosis Active calcium carbonate (OS-ARINA) 1250 (500 Ca) MG tabletIndication s:osteoporosis Take 1 tablet (1,250 mg total) by mouth daily. Indications: osteoporosis Active acetaminophen (TYLENOL) 325 MG tabletIndication s:pain or fever Take 2 tablets by mouth 2 (two) times daily as needed for Pain or Fever. Indications: pain or fever Active lidocaine 4 % patchIndications :right shoulder pain Place 1 patch onto the skin daily. Remove & Discard patch within 12 hours or as directed by MD 30 patch 4 Active B Complex Vitamins (VITAMIN B COMPLEX OR)Indications:v itamin deficiency Take 1 tablet by mouth daily. Indications: vitamin deficiency Active METAMUCIL FIBER ORIndications:gu t health Take 2 Scoops by mouth daily. Indications: gut health Active Resolved Problems Problem Noted Date Diagnosed Date Resolved Date Syncope 12/03/2023 12/07/2023 Social History Tobacco Use Types Packs/Day Years Used Date Smoking Tobacco: Former Smokeless Tobacco: Never Alcohol Use Standard Drinks/Week Comments Yes 0 (1 standard drink = 0.6 oz pur e alcohol) social OASIS D0700: Social Isolation Answer Da te Recorded Frequency of experiencing loneliness or isolatio n Never 12/26/2023 OASIS A1250: Transportation Answer Date Recorded Lack of Transportation (Medical) No 12/26/2023 Lack of Transportation (Non-Medical) No 12/26/2023 Patient Unable or Declines to Respond No 12/26/2023 OASIS B1300: Health Literacy Answer Len e Recorded Frequency of needing help to read materials from doctor or pharmacy Rarely 12/26/2023 [facility] Utilities Answer Date Recorded In the past 12 months has [facility] [employer], [employer], or water [employer] threatened to shut off services in your home? No 12/03/2023 Humiliation, Afraid, Rape, and Kick questionnair e Answer Date Recorded Within the last year, have y ou been afraid of your partner or ex-partner? No 12/03/2023 Within the last year, have y ou been humiliated or emotionally abused in other ways by your partner or ex-partner? No Within the last year, have y ou been kicked, hit, slapped, or otherwise physically hurt by your partner or ex-partner? No 12/03/2023 Within the last year, have y ou been raped or forced to have any kind of sexual activity by your partner or ex-partner? No 12/03/2023 AUDIT-C Answer Date Recorded Q1: How often do you have a drink containing alc ohol? Never 12/03/2023 Average Number of Drinks Not on file 024 Frequency of Binge Drinking Not on file 02/2024 Overall Financial Resource Strain (CARDIA) Answe r Date Recorded How hard is it for you to pa y for the very basics like food, housing, medical care, and heating? Not hard at all 12/03/2023 [facility] Occupat ional Health - Occupational Stress Questionnaire Answer Date Recorded Do you feel stress - tense, restless, nervous, or anxious, or unable to sleep at night because your mind is troubled all the time - these days? Not at all 12/03/2023 Hunger Vital Sign Answer Date Recorded Within the past 12 months, y ou worried that your food would run out before you got the money to buy more. Never true 12/03/19 24 Within the past 12 months, t he food you bought just didn't last and you didn't have money to get more. Never true 12/03/2023 PRAPARE - Transportation Answer Date Re corded In the past 12 months, has l ack of transportation kept you from medical appointments or from getting medications? No 02/2024 In the past 12 months, has l ack of transportation kept you from meetings, work, or from getting things needed for daily living? No 12/03/2023 Housing Stability Vital Sign Answer Len e Recorded In the last 12 months, was t here a time when you were not able to pay the mortgage or rent on time? No 12/03/2023 In the past 12 months, how m any times have you moved where you were living? 1 12/03/2023 At any time in the past 12 m [facility], were you homeless or living in a group home (including now)? 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 Gender Identity Not on file Sexual Orientation Not on file Last Filed Vital Signs Vital Sign Reading Time Taken Comments Blood Pressure 128/64 12/26/2023 1:14 PM CDT Pulse 96 12/26/2023 1:14 PM CDT Temperature 36.6 C (97.9 F) 12/16/2023 11:09 AM CDT Respiratory Rate 18 12/26/2023 1:14 PM CDT Oxygen Saturation 98% 12/26/2023 1:14 PM CDT Inhaled Oxygen Concentration - - Weight 87 kg (191 lb 12.8 oz) 12/07/2023 6:00 AM CDT Height 180.3 cm (5' 11 ) 12/03/2023 3:56 PM CDT Body Mass Index 26.75 12/03/2023 3:56 PM CDT Plan of Treatment Health Maintenance Due Date Last Done Comments Hepatitis C 1963 Zoster Vaccines (1 of 2) 1997 Annual Medicare Wellness Visit 2012 Pneumococcal Vaccine: 65+ Years (3 of 3 - PPSV23 or PCV20) 11/22/2019 11/21/2014, 09/12/2009 RSV Immunization or 60+ Years (1 - 1-dose 75+ series) 2022 COVID-19 Vaccine ( season) 2024 05/09/2022, 01/17/2022, 05/19/2021, Additional history exists DTaP, Tdap and Td Vaccines (2 - Td or Tdap) 06/06/2032 06/06/2022 Meningococcal B Vaccine Aged Out No l onger eligible based on patient's age to complete this topic Meningococcal Vaccine Aged Out No jojo luisa eligible based on patient's age to complete this topic RSV Immunizations Under 20 Months Aged Out No longer eligible based on patient's age to complete this topic Insurance AETNA Advance Directives * Full Code (Latest Code Status on File) Date Activated Date Inactivated Comments 12/09/2023 3:35 PM * Full Code Date Activated Date Inactivated Comments 12/03/2023 9:38 PM 12/07/2023 3:40 PM Care Teams Ball Point Splitter Relationship Specialty Start Date End Date Ally Starr NP [address] [place] [address] PCP - General NURSE PRACTITIONER 12/08/23
--- OUTSIDE RECORDS SUMMARY | 2024-10-26 12:33 | XMS_ITS | Encounter Summary ---
Author Organization [facility] Address [address] [place] [address] Phone Care Team Providers Care C.O.D. 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 Historical Provider [facility] JABIER OTERO Final Result documented in this encounter Visit Diagnoses Not on filedocumented in this encounter Care Teams C.O.D. Biller Relationship Specialty Start Date End Date Satish Brothers MD PCP - General 11/18/16 01/14/17 Satish Brothers MD PCP - General 01/15/17 10/02/21 Lindy Carlisle MD [address] [place], [place] [id number] PCP - General Internal Medicine 10/03/21 02/27/23 Ally Starr NP [address] [place], [place] [id number] PCP - General Nurse Practitioner 02/28/23 documented as of this encounter
--- OUTSIDE RECORDS SUMMARY | 2024-10-26 12:33 | XMS_ITS | Encounter Summary ---
Author Organization [facility] Address [address] [place] [address] Phone Care Team Providers Care Corporate Legal Manager Name Role Phone Lindy Carlisle MD Primary Care Provider Ally Starr NP Primary Care Pro vider Encounter Details Date Type Department Care Team (Late st Contact Info) Description 01/06/2023 Treatment [facility] [address] [facility] Medical Office Building [address] [place] [address] Will Walker MD [facility] [address] Social History Tobacco Use Types [...] often do you attend chur ch or amish services? Never 02/05/2021 Do you belong to any clubs o r organizations such as orthodox groups, unions, fraternal or athletic groups, or [...] place to sleep or slept in a detention (including now)? 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
--- OUTSIDE RECORDS SUMMARY | 2024-10-26 12:33 | XMS_ITS | Encounter Summary ---
Author Organization [facility] Address [address] [place] [address] Phone Care Team Providers Care Computer Systems Consultant Name Role Phone Ally Starr HEAD MILLER Primary Care Pro vider Encounter Details Date Type Department Care Team (Late st Contact Info) Description 10/26/2024 Telephone [facility] Cardiology [address] [facility] Advanced [address] 8th [place] [address] [place] [id number] Piyush Anaya MD PhD [address] [id number] Social History Tobacco Use Types Packs/Day Years [...] often do you attend chur ch or judaism services? Never 02/05/2021 Do you belong to any clubs o r organizations such as mandaeism groups, unions, fraternal or athletic groups, or [...] place to sleep or slept in a [place] care facility (including now)? No 02/05/2021 Personal Safety Answer Date Recorded Have you ever been in or are you currently in a harmful physical or emotional relationship or is someone making you feel afraid or unsafe? 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 did report she called 911 and they took him to [facility] in [place], [place]. They worked on him for 45 min and called it . Pt at 11:30am. states about 10:30am she heard him coughing and went to check on him. States it looked like he was dying . calm on phone until the end and cried. She thanked me for all the great care she has received (DAVID, Dr. Gautam ackerman, Rajni Starr HEAD MILLER. Let her know we will cancel all pending appointments and [employer] will send her a pre-paid pricing analyst to mail back his Carelink transmitter. * Telephone Encounter - Myriam Ballard RN - 10/26/2024 11:22 AM CDT Images from the original note were not included. Received Carelink transmission with alert for monitored VT episodes detected. Beginning at 10:33am pt had VF (14 detections) and at 10:34am a 9 min 23 sec episode - EGM suggests VF, however presenting EGM for transmission shows AP/ONLINE MEDIA BUYER 130 bpm with PVC. I left for to return our call. documented in this encounter Plan of Treatment Not on file documented as of this encounter Visit Diagnoses Not on filedocumented in this encounter Care Teams Computer Systems Consultant Relationship Specialty Start Date End Date Ally Starr NP PCP - General Nurse Practitioner 02/28/23 documented as of this encounter
--- OUTSIDE RECORDS SUMMARY | 2024-10-26 12:33 | XMS_ITS | Referral Summary ---
Author Organization [facility] Address [address] [place] [address] Care Team Providers Care Double Head Machine Operator Name Role Phone Ally Starr NP Primary Care Pro vider Encounters Date Type Department Care Team Description 10/26/[address] [address] Ally Starr NP 10/26/2024 Telephone [facility] Cardiology [facility] Advanced Medicine 8th [place] [address] [place] [address] Piyush Anaya MD PhD 10/20/2024 Telephone [facility] Cardiology [facility] Advanced Medicine 8th [place] [address] [place] [address] Godwin Florez MD Follow-up 10/19/2024 9:30 AM CDT Office Visit [address] [address] Ally Starr NP SIERRA (dyspnea on exertion) (Primary Dx); Other fatigue 09/20/2024 Orders Only [facility] Cardiology [address] [facility] [address] [place] [address] Piyush Anaya MD PhD from Last 3 Months Allergies Active Allergy Reactions Criticality Noted Date Comments Cephalexin Vomiting,Unknown Low 12/01/2008 confusion Medications aspirin 81 mg tabletIndicati ons:prevention of thrombosis Take 1 tablet (81 mg total) by mouth cigarette making machine catcher before breakfast 12/02/19 09 Active acetaminophen (TYLENOL) 500 mg tablet Take 1 tablet (500 mg total) by mouth every 6 (six) hours as needed for pain, headaches or fever 03/28/20 17 Active b complex vitamins tabletIndicati ons:Vitamin Deficiency Prevention Take 1 tablet by mouth cigarette making machine catcher before breakfast 12/02/19 09 Active cholecalcifero l (VITAMIN D-3) 2000 unit capsuleIndicat ions:Vitamin D Deficiency Take 1 capsule (2,000 Units total) by mouth cigarette making machine catcher before breakfast Active calcium carbonate/lilliam min D3 (CALCIUM 600 + D,3, ORAL) Take 1 tablet by mouth cigarette making machine catcher before breakfast 600 mg No D in calcium 01/28/20 21 Active psyllium, aspartame, SF (METAMUCIL SF) 3.4 gram packetIndicati ons:constipati on Take 1 packet by mouth cigarette making machine catcher before breakfast Active finasteride (PROSCAR) 5 mg tablet TAKE 1 TABLET BY MOUTH ONCE DAILY DIRECTED 90 tablet 2 02/16/20 24 Active abaloparatide 80 mcg (3,120 mcg/1.56 mL) pen injector Inject 0.04 mL (80 mcg total) under the skin daily 4.68 mL 3 02/26/20 24 Active pen needle, diabetic (Pen Needle) 32 gauge x 5/32 needle Use as directed once a day. [...] 07/08/2024 Assessment & Plan (07/08/2024 2:06 PM CIRCUIT BREAKER SUPERVISOR): Moderate aortic stenosis appreciated on echocardiogram [...] 12/03/2022 Assessment & Plan (07/08/2024 2:05 PM CIRCUIT BREAKER SUPERVISOR): Status post PPM. Continue close follow up with EP. Assessment & Plan (01/12/2024 1:26 PM CDT): Status post PPM. Continue close follow up with EP. Medicare annual wellness visit, subsequent 06/06 Assessment & Plan (06/06/2022 2:46 PM CIRCUIT BREAKER SUPERVISOR): - Depression screen: PHQ Screening PHQ-2 [...] outdoors Assessment & Plan (06/06/2022 9:44 PM CIRCUIT BREAKER SUPERVISOR): Urged him to f/u with his travel agent. Discussed photoprotection. Osteoporosis with pathologic al fracture of multiple sites with routine healing 04/20/2021 Overview (04/20/2021): Has 2019 hip fracture from fragility w/ relatively normal BMD, a fall and T12 compression 2020 and a second DXA. Despite the relatively preserved numbers he has osteoporosis in the classic sense Femoral neck T-score= -2.0 03/17 Assessment & Plan (06/06/2022 9:40 PM CIRCUIT BREAKER SUPERVISOR): Hx of hip fracture in 2018 [...] administration Assessment & Plan (06/06/2022 9:45 PM CIRCUIT BREAKER SUPERVISOR): Managed nonoperatively. With retropulsion but no myelomalacia. 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 No bleeding issues with Eliquis. Continue Eliquis and metoprolol XL. Continue close follow up with EP. Repeat CBC. Assessment & Plan (01/12/2024 1:27 PM CDT): Well controlled and asymptomatic. Continue Eliquis and metoprolol XL. Continue close follow up with EP. Assessment & Plan (06/06/2022 9:38 PM CIRCUIT BREAKER SUPERVISOR): Rate controlled. - Cont Eliquis 5mg bid, metoprolol XL 50mg every day - cont f/u with Dr. 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 Cont tx of afib, ASA, rosuvastatin as secondary prevention. Assessment & Plan (03/13/2020 10:43 AM CDT): This and the aftereffects are biggest health trouble Benign prostatic hyperplasia with urinary obstru ction 09/11/2013 Presence of cardiac pacemaker 02/09/2013 Syncope 02/01/2011 Chronic coronary artery disease 12/10/2010 Assessment & Plan (07/08/2024 2:04 PM CIRCUIT BREAKER SUPERVISOR): No chest pain or anginal equivalent. Continue ASA, zetia, Crestor and metoprolol XL. Assessment & Plan (01/12/2024 1:28 PM CDT): No chest pain or anginal equivalent. Continue ASA, zetia and metoprolol XL. Assessment & Plan (06/06/2022 9:43 PM CIRCUIT BREAKER SUPERVISOR): No angina. Moderate coronary disease on angiography approximately 10 years ago. Last ischemic evaluation was about 2 years ago demonstrating no ischemia. F/b Dr. Florez. - Cont ASA 81mg every day, rosuvastatin 40mg every day, metoprolol XL 50mg every day Assessment & Plan (03/13/2020 10:44 AM CDT): He reports no angina Hyperlipidemia 12/10/2010 Assessment & Plan (07/08/2024 2:04 PM CIRCUIT BREAKER SUPERVISOR): Stable on labs in 06/2023. Continue zetia and crestor. Repeat fasting lipid panel. Assessment & Plan (01/12/2024 1:28 PM CDT): Stable on labs in 06/2023. Continue zetia and crestor. Assessment & Plan (06/06/2022 9:40 PM CIRCUIT BREAKER SUPERVISOR): Lab Results Component Value Date CHOL [...] medications. Assessment & Plan (07/08/2024 2:05 PM CIRCUIT BREAKER SUPERVISOR): Elevated today but well controlled at [...] 50 Assessment & Plan (06/06/2022 9:42 PM CIRCUIT BREAKER SUPERVISOR): BP above goal <130/80. - Current medication regimen: cont metoprolol XL 50mg every day - rec home BP monitoring - Counseled regarding lifestyle measures to control HTN including low salt diet rich in fruits and vegetables, limiting alcohol use, regular exercise, and weight loss of 5-10% if pt is obese. Sick sinus syndrome ([facility]) 12/10/2010 Overview (12/04/2022): Recently got pacemaker changed. Denies any chest pain, sob, pain at pacemaker site, palpations. Has cardiology f/u 03/2023 Assessment & Plan (12/04/2022 1:21 PM CDT): - Continue outpatient cardiology f/u Assessment & Plan (06/06/2022 9:37 PM CIRCUIT BREAKER SUPERVISOR): S/p PPM, f/b Dr. Anaya. Obstruction [...] to trauma 02/01/202104/2022 Closed fracture of acetabulum ([facility]) 09/28/2018 06/06/2022 Debility 09/23/2018 06/06/2022 Overview (09/23/2018): From the fall and prior severe stroke He is home bound and wheelchair confined Assessment & Plan (09/23/2018 10:47 AM CIRCUIT BREAKER SUPERVISOR): We need home health and home PT and OT Falling, in, on, steps, sequela 09/23/2018 06/06/2022 Overview (09/23/2018): There is significant potentially unrecognozed injury to the right hip/ pelvis/ sacrum Assessment & Plan (09/23/2018 10:48 AM CIRCUIT BREAKER SUPERVISOR): We will work this up with bone scan and extensive plain films Pain in joint of right hip 09/23/2018 1 08/06/2021 Assessment & Plan (09/23/2018 10:49 AM CIRCUIT BREAKER SUPERVISOR): We will work this up with bone scan and extensive plain films Pain of foot 12/11/2016 06/06/2022 Routine medical exam 12/01/2016 022 Anticoagulated on warfarin 01/06/2014 1 08/06/2021 Arteriosclerotic heart disease (ASHD) 12/10/2010 06/06/2022 Immunizations Immunization Administration Dates Next Due Influenza, Quadrivalent, Hig h Dose, Preservative Free, Intrr 04/05/2020 Influenza, Trivalent, High D ose, Split, Preservative Free, Intramuscular 04/23/2019,04/05/2018,03/28/2017,04/15,04/17/2015,04/26/2014 Moderna SARS-CoV-2 Monovalen t Vaccination (12+ YRS) 01/17/2022,05/19/2021,04/02/2021,10/07 Pneumococcal Conjugate PCV 13 11/21/2014 Pneumococcal Polysaccharide PPV23 09/12/2009 Tdap 06/06/2022 Social History Tobacco Use Types Packs/Day Years [...] How often do you attend chur or restoration services? Never 02/05/2021 Do you belong to [...] place to sleep or slept in a senior care (including now)? No 02/05/2021 Personal Safety Answer Date Recorded Have you ever been in or are you currently in a harmful physical or emotional relationship or is someone making you feel afraid or unsafe? Denies 04/15/2023 Sex and Gender Information Value Date Recorded Sex Assigned at Not on file Legal Sex Male 7:47 PM CIRCUIT BREAKER SUPERVISOR Gender Identity Not on file Sexual [...] 10/19/2024 9:30 AM CDT Plan of Treatment Not on file Medical Devices Implanted Type Area Animal Care Provider Device Identifier Shelf Expiration Date Model / Serial / Lot Medtronic Ra Lead (5076-45) Lead Chest Medtronic Cardiac Rhythm Mgmt 5076-45 / / Medtronic Rv Lead (5076-52) Lead Chest Medtronic Cardiac Rhythm Mgmt 5076-52 / / Medtronic Pacemaker (Addrl1) Pacemaker Chest Medtronic Cardiac Rhythm Mgmt [id number] / / Medtronic Inc Diane S Mri Surescan 50.8x46.6mm 2 Chamber 7.4mm Pacemaker 22.5gm [id number] - [id number] - [id number] Implanted:Qty : 1 on 12/03/2022 by Piyush Anaya MD PhD at [facility] Pacemaker Left: Chest Wall Med[employer]onic Inc 02/22/2024 [id number] / [id number] / Procedures Procedure Name Priority Date/Time Associated Diagnosis Comments DEVICE CHECK - REMOTE Routine 09/20/2024 12:58 AM CIRCUIT BREAKER SUPERVISOR BASIC METABOLIC PANEL Routine 07/14/2024 1:07 PM CIRCUIT BREAKER SUPERVISOR Chronic coronary artery disease LIPID PANEL Routine 07/14/2024 1:07 PM CIRCUIT BREAKER SUPERVISOR HEMOGLOBIN A1C Routine 01/16/2024 3:10 PM CDT Age-related osteoporosis without current pathological fracture Other specified diabetes mellitus with other specified complication, unspecified whether chcf insulin use (HCC) COLONOSCOPY 04/08/2023 6:[address] ABDOMEN PELVIS WO CONTRAST Schedule FLAKITA, Read FLAKITA (Appt Today, Awaiting Results) 01/21/2023 2:45 PM CDT Passage of bloody stools Diarrhea, unspecified type HEPATITIS C ANTIBODY Routine 06/06/2022 2:55 PM CIRCUIT BREAKER SUPERVISOR Need for hepatitis C screening test from Last 3 Months or Most Recently Relevant to Health Maintenance Results * DEVICE CHECK - REMOTE (09/20/2024 12:58 AM CIRCUIT BREAKER SUPERVISOR) Anatomical Region Laterality Modality Other 09/20/2024 12:5 8 AM CIRCUIT BREAKER SUPERVISOR Narrative 10/01/2024 8:58 AM CIRCUIT BREAKER SUPERVISOR Interpretation Summary: Battery and Leads (BL) Normal parameters noted on battery and lead(s) --- 12.2 yrs remaining longevity. Sensing, threshold, and RV impedance trends stable and appropriate. No short V-V intervals. Lead impedance out of range --- Atrial bipolar & unipolar impedance 1463 ohms & 1292 ohms. Trends are stable. Presenting Rhythm (RI) Atrial Pacing-Ventricular Sensing (AP-VS) --- AP/VS 60 [...] 1292 ohms. Trends are stable. Presenting Rhythm (RI) Atrial Pacing-Ventricular Sensing (AP-VS) --- AP/VS 60 [...] * (ABNORMAL) Lipid panel (07/14/2024 1:07 PM CIRCUIT BREAKER SUPERVISOR) Pathologist [facility] Cholesterol 92 <200 mg/dL [facility] [...] factors. LDL-C is now calculated using the Shakeel-Whittaker calculation, which is a validated novel method providing better accuracy than the Friedewald equation in the estimation of LDL-C. Shakeel GARLAND et al. LIZ. 2013;310(19): 7582-0143 (http://education.[employer] [place] [employer].SeedInvest/faq/FLW232) Chol/HDL ratio 3.0 <5.0 (calc) [facility] Non-HDL, (LDL+VLDL) 61 <130 mg/dL (calc) [facility] Comment: For patients with diabetes plus 1 major ASCVD risk factor, treating to a non-HDL-C goal of <100 mg/dL (LDL-C of <70 mg/dL) is considered a therapeutic option. 07/14/2024 1:07 PM CIRCUIT BREAKER SUPERVISOR 07/14/2024 1:08 PM CIRCUIT BREAKER SUPERVISOR Narrative [facility] - 07/15/2024 9:58 AM CIRCUIT BREAKER SUPERVISOR FASTING:NO FASTING: NO Jayjay Gardner ORE PUNCHER LAB BLOOD ORDERABLES Fin al Result Performing Organization Address [facility] Co de Phone Number [facility] [address] [place] [address] * Basic metabolic panel (07/14/2024 1:07 PM CIRCUIT BREAKER SUPERVISOR) Pathologist [facility] Glucose 90 65 - 139 mg/dL [facility] Comment: Non-fasting reference interval BUN 16 7 - 25 mg/dL [facility] Creatinine 1.10 0.70 - 1.28 mg/dL [facility] eGFR 69 > OR = 60 mL/min/1.7 3m2 [facility] BUN/creat ratio SEE NOTE: (calc) [facility] Comment: Not Reported: [...] [facility] Blood 07/14/2024 1:07 PM CIRCUIT BREAKER SUPERVISOR 07/14/2024 1:08 PM CIRCUIT BREAKER SUPERVISOR Narrative [facility] - 07/15/2024 9:58 AM CIRCUIT BREAKER SUPERVISOR FASTING:NO FASTING: NO Jayjay Gardner ORE PUNCHER LAB BLOOD ORDERABLES Fin al Result Performing Organization Address [facility] Co de Phone Number [facility] [address] [place] [address] * Hemoglobin A1c (01/16/2024 3:10 PM CDT) Hgb A1C 5.6 <5.7 % of total Hgb [facility] Comment: For the purpose of screening for the presence of diabetes: <5.7% Consistent with the absence of diabetes 5.7-6.4% Consistent with increased risk for diabetes (prediabetes) > or =6.5% Consistent with diabetes This assay result is consistent with a decreased risk of diabetes. Currently, no consensus exists regarding use of hemoglobin A1c for diagnosis of diabetes in children. According to [place] Diabetes Association (ADA) guidelines, hemoglobin A1c <7.0% represents optimal control in non- diabetic patients. Different metrics may apply to specific patient populations. Standards of Medical Care in Diabetes(ADA). This test was performed on the Flaco chris c503 platform. Effective 10/13/23, a change in test platforms from the Lopez Assistant Librarian to the Flaco chris c503 may have shifted HbA1c results compared to historical results. Based on laboratory validation testing conducted at [facility], the Flaco platform relative to the Lopez [...] CDT FASTING:NO FASTING: NO us Kecia Guzman NP LAB BLOOD ORDERABLES Final Re sult [facility] [address] [place] [address] * COLONOSCOPY (04/08/2023 6:59 AM CDT) Anatomical Region Laterality Modality Other Narrative Procedure Note Raul Spear MD - 04/08/2023 6:59 AM CDT ENDOSCOPY LAB Patient Name: Napoleon Woodruff Procedure Date: 04/08/2023 6:59 AM Admit Type: Outpatient Room: [facility] 3 Date of : 1945 Instrument Name: [id number] Gender: Male Note Status: Finalized Procedure: Colonoscopy Indications: Chronic diarrhea, Hematochezia Providers: Raul Spear M.D. Referring MD: Lindy Calrisle M.D. Medicines: Propofol per Anesthesia Complications: No [...] signed by: Jordyn Kenyon M.D. Ally Starr ORE PUNCHER IMG CT PROCEDURES Final Result * Hepatitis C antibody (06/06/2022 2:55 PM CIRCUIT BREAKER SUPERVISOR) A-HCV II 0.06 Negative <0.90 [facility] Comment: <=0.9 negative 0.9-<1.0 borderline >= 1 positive Blood 06/06/2022 2:55 PM CIRCUIT BREAKER SUPERVISOR 06/06/2022 3:23 PM CIRCUIT BREAKER SUPERVISOR Lindy Carlisle MD LAB MICROBIOLOGY - GEN ERAL ORDERABLES Final Result [facility] [address] [place] [address] from Last 3 Months or Most Recently Relevant to Health Maintenance Insurance [employer] MEDICARE MEDICARE MEDICARE [facility] MEDIC[facility] AETNA MEDICARE Advance Directives For more information, please contact: [phone] * Full Code (Latest Code Status on File) Date Activated Date Inactivated Comments 04/08/2023 6:44 AM 04/08/2023 1:20 PM * Full Code Date Activated Date Inactivated Comments 02/01/2021 2:59 AM 02/11/2021 6:18 PM Care Teams Double Head Machine Operator Relationship Specialty Start Date End Date Ally Starr NP PCP - General Nurse Practitioner 02/28/23
--- OUTSIDE RECORDS SUMMARY | 2024-10-26 12:33 | XMS_ITS | Encounter Summary ---
Author Organization [facility] Address [address] [place] [address] Phone Care Team Providers Care Molded Goods Embossing Press Operator Name Role Phone Satish Brothers MD Primary Care Provider [phone] Satish Brothers MD Primary Care Provider [phone] Lindy Carlisle MD Primary Care Provider Ally Starr NP Primary Care Pro vider Encounter Details Date Type Department Care Team (Late st Contact Info) Description 02/01/2015 Orders Only [facility] ProviderIrving MD [address] [place] [address] Social History Tobacco Use Types Packs/Day Years Used Date Smoking Tobacco: Never Assessed Sex and Gender Information Value Date Recorded Sex Assigned at Not on file Legal Sex Male 7: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 Historical Provider [facility] JABIER OTERO Final Result documented in this encounter Visit Diagnoses Not on filedocumented in this encounter Care Teams Molded Goods Embossing Press Operator Relationship Specialty Start Date End Date Satish Brothers MD PCP - General 11/18/16 01/14/17 Satish Brothers MD PCP - General 01/15/17 10/02/21 Lindy Carlisle MD [address] [place], [place] [id number] PCP - General Internal Medicine 10/03/21 02/27/23 Ally Starr NP [address] [place], [place] [id number] PCP - General Nurse Practitioner 02/28/23 documented as of this encounter
--- OUTSIDE RECORDS SUMMARY | 2024-10-26 12:33 | XMS_ITS | Encounter Summary ---
Author Organization [facility] Address [address] [place] [address] Phone Care Team Providers Care Mechanical Artist Name Role Phone Satish Brothers MD Primary Care Provider [phone] Lindy Carlisle MD Primary Care Provider Ally Starr NP Primary Care Pro vider Encounter Details Date Type Department Care Team (Late st Contact Info) Description 02/07/2017 Orders Only [facility] Provider, MD Irving [address] [place] [address] Social History Tobacco Use Types Packs/Day Years Used Date Smoking Tobacco: Never Assessed Sex and Gender Information Value Date Recorded Sex Assigned at Not on file Legal Sex Male 7:47 PM TECHNICAL SPECIALIST CYTOLOGY Gender Identity Not on file Sexual Orientation Not on file documented as of this encounter Plan of Treatment Not on file documented as of this encounter Procedures Procedure Name Priority Date/Time Associated Diagnosis Comments CARDIOLOGY REPORT 02/07/2017 documented in this encounter Results * CARDIOLOGY REPORT (02/07/2017) Anatomical Region Laterality Modality Other Narrative 02/07/2017 Ordered by an unspecified provider. Historical Provider CV CARDIAC SERVICES JABIER OTERO Final Result documented in this encounter Visit Diagnoses Not on filedocumented in this encounter Care Teams Mechanical Artist Relationship Specialty Start Date End Date Satish Brothers MD PCP - General 01/15/17 10/02/21 Lindy Carlisle MD [address] [place] [address] PCP - General Internal Medicine 10/03/21 02/27/23 Ally Starr NP [address] [place] [address] PCP - General Nurse Practitioner 02/28/23 documented as of this encounter
--- OUTSIDE RECORDS SUMMARY | 2024-10-26 12:33 | XMS_ITS | Encounter Summary ---
Author Organization [facility] Address [address] [place] [address] Phone Care Team Providers Care Detective Precinct Name Role Phone Ally Starr NP Primary Care Pro vider Encounter Details Date Type Department Care Team (Late st Contact Info) Description 10/26/2024 Telephone [facility] [address] [place] [address] Ally Starr, TYSON [address] [place] [address] Social History Tobacco Use Types Packs/Day Years [...] any clubs o r organizations such as hinduism groups, unions, fraternal or athletic groups, or [...] in a longterm (including now)? No 02/05/2021 Personal Safety Answer Date Recorded Have you ever been in or are you currently in a harmful physical or emotional relationship or is someone making you feel afraid or unsafe? 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 Number is [phone]. Dr. Friedman documented in this encounter Plan of Treatment Not on file documented as of this encounter Visit Diagnoses Not on filedocumented in this encounter Care Teams Detective Precinct Relationship Specialty Start Date End Date Ally Starr NP PCP - General Nurse Practitioner 02/28/23 documented as of this encounter
--- OUTSIDE RECORDS SUMMARY | 2024-10-26 12:33 | XMS_ITS | Encounter Summary ---
Author Organization [facility] Address [address] [place] [address] Phone Care Team Providers Care Travel Rn Or Name Role Phone Satish Brothers MD Primary Care Provider [phone] Satish Brothers MD Primary Care Provider [phone] Lindy Carlisle MD Primary Care Provider Ally Starr NP Primary Care Pro vider Encounter Details Date Type Department Care Team (Late st Contact Info) Description 02/07/2016 Orders Only [facility] ProviderIrving MD [address] [place] [id number] Social History Tobacco Use Types Packs/Day Years Used Date Smoking Tobacco: Never Assessed Sex and Gender Information Value Date Recorded Sex Assigned at Not on file 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 Historical Provider [facility]TER[facility] Final Result documented in this encounter Visit Diagnoses Not on filedocumented in this encounter Care Teams Travel Rn Or Relationship Specialty Start Date End Date Satish Brothers MD PCP - General 11/18/16 01/14/17 Satish Brothers MD PCP - General 01/15/17 10/02/21 Lindy Carlisle MD [address] [place], [place] [id number] PCP - General Internal Medicine 10/03/21 02/27/23 Ally Starr NP [address], [place] [id number] PCP - General Nurse Practitioner 02/28/23 documented as of this encounter
--- OUTSIDE RECORDS SUMMARY | 2024-10-26 12:33 | XMS_ITS | Encounter Summary ---
Author Organization [facility] Address [address] [place] [address] Phone Care Team Providers Care Physical Medicine Physician Name Role Phone Satish Brothers MD Primary Care Provider [phone] Satish Brothers MD Primary Care Provider [phone] Lindy Carlisle MD Primary Care Provider Ally Starr NP Primary Care Pro vider Encounter Details Date Type Department Care Team (Late st Contact Info) Description 04/12/2013 Orders Only [facility] ProviderIrving MD [address] [place] [address] Social History Tobacco Use Types Packs/Day Years Used Date Smoking Tobacco: Never Assessed Sex and Gender Information Value Date Recorded Sex Assigned at Not on file 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 Historical Provider [facility] OTERO Final Result documented in this encounter Visit Diagnoses Not on filedocumented in this encounter Care Teams Physical Medicine Physician Relationship Specialty Start Date End Date Satish Brothers MD PCP - General 11/18/16 01/14/17 Satish Brothers MD PCP - General 01/15/17 10/02/21 Lindy Carlisle MD [address] [place], [place] [id number] PCP - General Internal Medicine 10/03/21 02/27/23 Ally Starr NP [address] [place], [place] [id number] PCP - General Nurse Practitioner 02/28/23 documented as of this encounter
--- NOTE | 2024-10-26 13:10 | PC.NURSE ---
Per Dr. Friedman, Ally Starr [employer] cannot sign the certificate because she practices in [place]. CASEY Odonnell, made aware and provided with [employer]'s contact information.
--- NOTE | 2024-10-26 14:33 | PC.NURSE ---
[facility] called to inform they have attempted to call the spouse without success - voicemail left. [facility] asks we do not release body until they get ahold of family.
== END 2024-10-26 13:30 | disposition expired ==
PROVIDERS: Emergency Provider Emergency Medicine
DX: I46.9 Cardiac arrest, cause unspecified (principal); I48.91 Unspecified atrial fibrillation; I50.9 Heart failure, unspecified; Z66 Do not resuscitate; Z86.73 Personal history of transient ischemic attack (TIA), and cerebral infarction without residual deficits
CPT/HCPCS: 31500; 36556; 92950; 99285; C1751; J0171; J0282